=== PATIENT | female | born 1995 | race African-American/Black ===

== ENCOUNTER 2022-05-21 05:38 | Emergency (ER) | payer OTHER ==
[~2022-05-21] VITALS: Ht 152.4 cm; Wt 90.9 kg
[2022-05-21 05:51] VITALS: BP 144/83
[2022-05-21 06:14] LABS: COVID AG,FIA SOURCE NASAL SWAB
[2022-05-21 06:49] LABS: INFLUENZA TYPE A NEGATIVE FOR TYPE A (NEGATIVE); INFLUENZA TYPE B NEGATIVE FOR TYPE B (NEGATIVE)
[2022-05-21] MEDS ORDERED: ALBU8HFA IH (07:09)
[2022-05-21] MEDS ORDERED: BENZ-70 PO (07:09)
== END 2022-05-21 07:22 | disposition home or self-care (01) ==
LOC: EMS 05:39
DX: J06.9 Acute upper respiratory infection, unspecified (principal); J45.909 Unspecified asthma, uncomplicated; F17.210 Nicotine dependence, cigarettes, uncomplicated; F12.90 Cannabis use, unspecified, uncomplicated; Z20.822 Contact with and (suspected) exposure to COVID-19
CPT/HCPCS: 87804; 99283